=== PATIENT | male | born 1965 | race Caucasian/White ===

== ENCOUNTER 2021-11-08 00:04 | Emergency (ER) | payer OTHER, SELFPAY ==
--- NOTE | ~2021-11-08 | XR_ITS ---
EXAMINATION: XR chest 2V DATE: 11/08/2021 01:29 INDICATION: Concern for free intraperitoneal gas. TECHNIQUE: PA and lateral views of the chest were obtained. COMPARISON: None FINDINGS: The lungs are clear with no focal airspace opacities, pulmonary edema, pleural effusion or pneumothor ax. The cardiomediastinal silhouette is normal. No free intraperitoneal gas below the diaphragm. Mild thoracic spondylosis. IMPRESSION: 1. No free intraperineal gas or acute cardiopulmonary disease. Reviewed, dictated and finalized at location A. [employer]
[2021-11-08 00:09] VITALS: BP 153/95; PULSE 96; RESP 18; TEMP 36.3; O2SAT 99
--- NOTE | 2021-11-08 01:55 | ED.GENADULT ---
HPI - General Adult General Chief complaint: Unspecified Stated complaint: possible food bolus Time Seen by Provider: 11/08/21 01:11 Source: patient History of Present Illness HPI narrative: Patient presents with concern for food bolus. Reports a history of issues with his esophagus that required dilation that was several years ago when he was doing well. Tonight he was eating some pork and had pain in his chest and throat he is having a hard time swallowing water so he came to the ER for evaluation. Reports after presenting to his ER room he was feeling much improved reports some mild soreness in his throat but he feels as if the food bolus has passed. Reports he has been able to drink water easily now Related Data Home Medications Medication Instructions Recorded Confirmed No Home Medications 11/08/21 11/08/21 Allergies Allergy/AdvReac Type Severity Reaction Status Date / Time BEE STINGS Allergy Intermediate Unknown Uncoded 11/08/21 01:07 Review of Systems Review of Systems: CONSTITUTIONAL: Denies fever, chills, or sweats. EYES: Denies visual changes, redness, or discharge. ENT: Denies rhinorrhea, congestion, or otalgia. CARDIOVASCULAR: Denies palpitations, or edema. RESPIRATORY: Denies cough or dyspnea. GASTROINTESTINAL: Denies abdominal pain, nausea, vomiting, or diarrhea. GENITOURINARY: Denies dysuria or hematuria. SKIN: Denies rash or itching. MUSCULOSKELETAL: Denies back pain, joint pain, or myalgia. NEUROLOGIC: Denies headache, numbness, dizziness, or weakness. PSYCHIATRIC: Denies anxiety or depression. All systems reviewed & are unremarkable except as noted in HPI and below Exam Narrative: GENERAL: Well-appearing, well-nourished, and in no acute distress. HEAD: Normocephalic, atraumatic. EYES: PERRLA and EOMI. ENT: Nares clear, no rhinorrhea or epistaxis. Mucous membranes moist. NECK: Supple. No masses. No JVD CHEST: Clear to auscultation. No respiratory distress. No wheezes rales or rhonchi no crepitus HEART: Regular rate and rhythm. No murmur heard. Normal peripheral pulses. ABDOMEN: Soft, nontender, nondistended, normal active bowel sounds. EXTREMITIES: Normal range of motion. No edema. SKIN: Warm, dry, no rash. NEURO: No focal deficits. Alert and oriented x3. PSYCH: Normal mood and affect. Course Reevaluation(s) Reevaluation #1: Patient resting comfortably results and plan reviewed with patient. Patient is comfortable outpatient plan. Date: 11/08/21 Time: 01:57 Vital Signs Vital signs: Vital Signs Temperature 36.3 C L 11/08/21 00:09 Pulse Rate 96 11/08/21 00:09 Respiratory Rate 18 11/08/21 00:09 Blood Pressure 153/95 H 11/08/21 00:09 Pulse Oximetry 99 11/08/21 00:09 Temperature 36.3 C L 11/08/21 00:09 Pulse Rate 102 H 11/08/21 02:11 Respiratory Rate 16 11/08/21 02:11 Blood Pressure 133/89 11/08/21 02:11 Pulse Oximetry 96 11/08/21 02:11 Medical Decision Making MDM Narrative Medical decision making narrative: H&P as above, vss, pt looks clinically well, exam reassuring no crepitus noted on the chest or neck imaging without free air, additional labs/img considered, symptomatic relief available as needed, on reevaluation pt continues to looks clinically well. Suspect food bolus that passed, dns perforated esophagus severe sepsis airway obstruction. plan to tx/monitor as op w/ GI f/u findings/plan discussed with pt, pt agree/comfortable with plan, return precautions given Vital Signs Vital Signs: Vital Signs Temperature 36.3 C L 11/08/21 00:09 Pulse Rate 96 11/08/21 00:09 Respiratory Rate 18 11/08/21 00:09 Blood Pressure 153/95 H 11/08/21 00:09 Pulse Oximetry 99 11/08/21 00:09 Temperature 36.3 C L 11/08/21 00:09 Pulse Rate 102 H 11/08/21 02:11 Respiratory Rate 16 11/08/21 02:11 Blood Pressure 133/89 11/08/21 02:11 Pulse Oximetry 96 11/08/21 02:11 Imaging Data My impression: No free air no acute process chest x-ray
[2021-11-08 02:11] VITALS: BP 133/89; PULSE 102; RESP 16; O2SAT 96
== END 2021-11-08 02:22 | disposition home or self-care (01) ==
PROVIDERS: Emergency Provider Emergency Medicine
DX: T18.128A Food in esophagus causing other injury, initial encounter (principal); Y29.XXXA Contact with blunt object, undetermined intent, initial encounter
CPT/HCPCS: 71046; 99283